=== PATIENT | male | born 1960 | race Two or more races ===

== ENCOUNTER 2016-07-11 12:34 | Emergency (ER) | payer OTHER ==
--- NOTE | 2016-07-11 13:08 | PDOC ---
History of Present Illness - General Chief Complaint: Pain Stated Complaint: RIGHT FOOT PAIN, LEFT FOOT BLACK VEINS Time Seen by Provider: 07/11/16 12:35 History Source: Patient Exam Limitations: No Limitations - History of Present Illness Initial Comments: 07/11/16 13:04 This is an otherwise healthy 56-year-old male who presents emergency department with a complaint of foot pain and being swelling. [place] Over the past 15 days he is noted right foot pain which has gradually worsened. His pain is most prominent in his right heel, worse with standing or putting pressure on the back of the heel. No swelling. He describes pain as a 9-10 over 10, no radiation of his pain. Patient has not taken any medications to alleviate his symptoms. He denies any known direct trauma, inversion injury, or falls. Patient also presents the ER with a complaint of "black and veins" of the left leg. He has noticed this over the past 3 weeks. He has also noted mild foot/leg swelling. No calf pain or swelling. PMH: Hypertension PSH: Denies Medications: Amlodipine, atenolol A LL: NKDA social: denies drugs or cigarettes GENERAL/CONSTITUTIONAL: No: fever, chills, weakness, loss of appetite. MUSCULOSKELETAL: Yes: right heel pain No: back pain, neck pain, joint pain SKIN: Yes: left leg venous discoloration, mild swelling No: lesions, pallor, rash or easy bruising. NEUROLOGIC: No: headache, vertigo, paresthesias, weakness ENDOCRINE: No: unexplained weight gain or loss HEMATOLOGIC/LYMPHATIC: No: anemia, easy bleeding, swelling nodes. GENERAL: The patient is in no acute distress. EXTREMITIES: Right heel is tendern to palpation. Left leg prominent veins 2+ DP and PT bilaterally NEUROLOGICAL: Cranial nerves II through XII grossly intact. Normal speech. No focal neurological deficits. MUSCULOSKELETAL: Back non-tender to palpation, no CVA tenderness SKIN: Warm, Dry, normal turgor, no rashes or lesions noted. Past History - Past Medical History Allergies/Adverse Reactions: Allergies Allergy/AdvReac Type Severity Reaction Status Date / Time No Known Allergies Allergy Verified 07/11/16 12:36 Home Medications: Ambulatory Orders Amlodipine Besylate 5 mg PO DAILY 07/11/16 Atenolol [Tenormin] 50 mg PO DAILY 07/11/16 Diphenhydramine HCl [Benadryl -] 25 mg PO Q8H PRN #21 capsule 07/11/16 Hydrocortisone 1% Cream [Hytone 1% Cream -] 1 applic TP BID PRN #1 tube Medical Decision Making - Medical Decision Making 07/11/16 13:08 Will give motrin for pain Will do xray heel Will do duplex left leg (given flight 1 month ago) 07/11/16 14:03 xray negative Duplex negative Will discharge to home 07/11/16 14:29 Pt has a pruritic area of the left deltoid Upon examination it is a 1cm urticarial lesion Pt friend is concerned about bed bugs related to the gown used in Ultrasound? Will give benadryl I do not believe this is due to a bed bug bite Local irritation *DC/Admit/Observation/Transfer Diagnosis at time of Disposition: Heel spur Qualifiers: Laterality: right Qualified Code(s): M77.31 - Calcaneal spur, right foot - Discharge Dispostion Disposition: HOME Condition at time of disposition: Stable Admit: No - Prescriptions Prescriptions: Diphenhydramine HCl [Benadryl -] 25 mg PO Q8H PRN #21 capsule PRN Reason: itching Hydrocortisone 1% Cream [Hytone 1% Cream -] 1 applic TP BID PRN #1 tube PRN Reason: itching - Patient Instructions Printed Discharge Instructions: Heels That Hurt Additional Instructions: Return to the emergency department immediately with ANY new, persistent or worsening symptoms. Continue any medications as previously prescribed by your physician. You should follow up with your primary doctor as soon as possible regarding today's emergency department visit. . Please make sure your doctor reviews the results of your emergency evaluation. Thank you for coming to the [facility] today for your care. It was a pleasure to see you today. Please note that your evaluation is INCOMPLETE until you follow-up with your doctor.
[2016-07-11 13:14] VITALS: TEMP 98.1; BMI 28.0
[2016-07-11 14:01] VITALS: BP 163/95; PULSE 78
[2016-07-11] MEDS ORDERED: diphenhydrAMINE HCL 25 MG CAPSULE (FP) PO ONE ×2 (14:26→14:29)
== END 2016-07-11 14:34 | disposition home or self-care (01) ==
LOC: FER 12:34
DX: M77.31 Calcaneal spur, right foot (principal); I10 Essential (primary) hypertension
CPT/HCPCS: 73630-TC-RT; 93971-TC; 99282-25

== ENCOUNTER 2019-08-22 04:52 | Day surgery (SDC) | payer BC, OTHER ==
[2019-08-21 13:21] VITALS: BMI 27.8
--- NOTE | 2019-08-21 16:05 | HP ---
Satellite [facility] - Chief Complaint Chief Complaint: left shoulder pain - Past Medical History Allergies/Adverse Reactions: Allergies Allergy/AdvReac Type Severity Reaction Status Date / Time No Known Allergies Allergy Verified 07/11/16 12:36 - Current Medications Current Medications: Home Medications Medication Instructions Recorded Amlopres 08/21/19 Meloxicam [Mobic (Nf) -] 15 mg PO PRN 08/21/19 Metformin HCl [Glucophage] 500 mg PO DAILY 08/21/19 Satellite Physical Exam - Physical Examination General Appearance: Well Nourished, Well Developed, Alert & Oriented x3 ENT: Clear Lung: Normal air movement Extremities: Other (left shoulder- + ttp, decr rom, + neer, +donald, nvi) Neurological: Intact, Alert, Oriented Satellite Impression/Plan - Impression/Plan Impression: left shoulder impingement, partial rct, OA Operative Procedure: left shoulder arthroscopy with ARTHUR VILLALPANDO Date to be Performed: 08/21/19
[2019-08-22] MEDS ORDERED: PROPOFOL 20 ML ONE ×2 (08:04)
[2019-08-22] MEDS ORDERED: LIDOCAINE HCL/PF 2% SDV 5ML VIAL ONE (08:04)
[2019-08-22] MEDS ORDERED: MIDAZOLAM HCL 2 MG/2 ML SINGLE DOSE VIAL ONE ×3 (08:04→08:12)
[2019-08-22] MEDS ORDERED: ceFAZolin SODIUM 1 GM VIAL ONE ×2 (08:04→08:38)
[2019-08-22] MEDS ORDERED: DEXAMETHASONE SOD PHOSPHATE 4 MG/1 ML VIAL ONE ×2 (08:04→08:51)
[2019-08-22] MEDS ORDERED: ROPIVACAINE HCL 0.5% 30ML VIAL ONE (08:11)
[2019-08-22] MEDS ORDERED: ceFAZolin SODIUM 1 GM VIAL IVPB ONE (08:38)
[2019-08-22] MEDS ORDERED: KETOROLAC TROMETHAMINE 30 MG/1 ML VIAL ONE (08:51)
[2019-08-22] MEDS ORDERED: LABETALOL HCL 5 MG/1 ML (100MG/20 ML VIAL) ONE (08:52)
--- NOTE | 2019-08-22 09:48 | OP ---
Operative Note - Note: Operative Date: 08/22/19 Pre-Operative Diagnosis: left shoulder impingement syndrome, AC joint OA, adhesive capsulitis Operation: left shoulder arthroscopy, subacromial decompression, manipulation under anesthesia Post-Operative Diagnosis: Same as Pre-op Surgeon: Magdiel Pradhan Supervisor Of Officials: Werner Baker Anesthesiologist/SENIOR PHYSICIAN: Yosvany Zafar Anesthesia: General, Local Specimens Removed: shavings Estimated Blood Loss (mls): 75 Drains, Volume Out (mls): 0 Blood Volume Replaced (mls): 0 Fluid Volume Replaced (mls): 1,000 Operative Report Dictated: Yes
[2019-08-22] MEDS ORDERED: ONDANSETRON 4 MG/2 ML VIAL IVPUSH PRN (10:20)
[2019-08-22] MEDS ORDERED: oxyCODONE HCL 5 MG TABLET PO PRN ×2 (10:20)
[2019-08-22] MEDS ORDERED: ACETAMINOPHEN 1000 MG/100 ML VIAL (NON FORMULARY) IVPB ONE (10:21)
[2019-08-22] MEDS ORDERED: LACTATED RINGERS SOLUTION 1,000 ML IV SCH (10:30)
--- NOTE | 2019-08-22 13:11 | OP ---
DATE OF OPERATION: 08/22/2019 PREOPERATIVE DIAGNOSES: Left shoulder impingement syndrome and adhesive capsulitis. POSTOPERATIVE DIAGNOSES: Left shoulder impingement syndrome and adhesive capsulitis. PROCEDURE: Left shoulder arthroscopy, subacromial decompression, and manipulation under anesthesia. DRAINS: None. COMPLICATIONS: None. SPECIMENS: Arthroscopic shavings. BLOOD LOSS: 75 mL. BLOOD GIVEN: None. FLUID REPLACEMENT: Plasma-Lyte 1000 mL. SURGEON: Colby Pradhan MD BUYER PLANNER: Werner Baker MD ANESTHESIOLOGIST: Yosvany Zafar MD ANESTHESIA: Left interscalene block with LMA anesthesia. This patient is a 59-year-old male with the preoperative diagnosis of severe left shoulder adhesive capsulitis and impingement syndrome. After understanding the potential risks, complications, alternatives, and benefits of surgery versus nonsurgical treatment, the patient elected to undergo this procedure. The patient was brought to the operating room. Peripheral IV placed. IV sedation given. Two grams of IV Ancef were given, and a left interscalene block was performed. LMA anesthesia was induced. He was placed into the beach chair position with ample padding throughout. First, we did a manipulation under anesthesia. The patient had severe adhesive capsulitis. I was only able to externally rotate him 5 degrees, forward flexion to 50 degrees, abduction to 50 degrees, and internal rotation to the belly. Crossing reduction was extremely tight. I could not get his arm across his body. I did a manipulation under anesthesia very carefully in all planes. When I was done, he essentially had full range of motion in forward flexion, crossing abduction, abduction, extension, internal and external rotation. Next, the left upper extremity was prepped and draped in sterile fashion. The bony landmarks were marked out with a marking pen. A posterior portal was established with a number-15 scalpel blade, and a diagnostic glenohumeral arthroscopy was performed. I evacuated some hematoma from the manipulation under anesthesia. The joint looked good. The undersurface of the rotator cuff looked good. There was no tear. The biceps tendon, glenoid, and humerus looked good. The glenoid labrum was frayed, but not torn. The area was copiously irrigated and washed out. All excess saline and hematoma were removed. Next, our attention turned to the subacromial space. Patient had a tremendous amount of inflammatory bursitis. A lateral portal was established, first with a spinal needle, then a number-15 scalpel blade, and then, a green cannula was then introduced into the subacromial space. An ArthroCare wand was used to do a soft tissue bursectomy/extensive debridement/soft tissue subacromial decompression. This revealed an extremely large subacromial bony spur. The distal clavicle looked good. The top surface of the rotator cuff looked good. I put the arm through a full range of motion. There was no top-surface rotator cuff tear. The subacromial space was extremely tight from the subacromial spur. The bony spur was taken down with a 5.5-mm oval beti, first in forward, then fine-tuned in reverse, and then with a straight shaver. All bony debris was removed, and additional bursectomy was performed. Photographs were taken before and after. The arm was put through a range of motion. There were no points of impingement. At this point, the top surface of the rotator cuff was again directly visualized, and again, there was no tear. The area was copiously irrigated and washed out. All excess saline removed. The arthroscopy portals were closed with 3-0 nylon sutures. The area was then washed and dried, covered with Aquacel dressing, sling. Total surgical time was about 40 minutes. There were no complications during the case. The patient was brought to the recovery room in stable condition. Werner Baker MD dictating for MD COLBY Carrillo M.D. [id number]
[2019-08-22 13:49] VITALS: BP 138/74; PULSE 83; TEMP 97.1
--- NOTE | 2019-08-26 17:56 | PATH ---
Surgical Pathology Report Patient Name: DERIC GIBBS Med. Rec. #: [id number] /Age/Gender: 1960 (Age: 59) / M Account: [id number] Location: [facility] SURGICAL Taken: 08/22/2019 Received: 08/22/2019 Reported: 08/26/2019 Physicians: Cheryl Cherry M.D. Specimen(s) Received LEFT SHOULDER SHAVINGS Clinical History Tear left shoulder Final Diagnosis LEFT SHOULDER SHAVINGS: BENIGN PORTIONS OF SKELETAL MUSCLE, CARTILAGE, AND SYNOVIAL TISSUE. Electronically Signed Karen Arellano M.D. Gross Description Received in formalin, labeled "left shoulder shavings," is a 6.0 x 4.8 x 0.4 cm. aggregate of silva-yellow soft tissue fragments. A administrative representative portion is submitted in one cassette. /08/22/2019 saudi/08/22/2019
== END 2019-08-22 13:49 | disposition home or self-care (01) ==
LOC: JASU-SURG 04:52
PROVIDERS: ATTEND Orthopaedic Surgery
PROC: 0RNK4ZZ Release Left Shoulder Joint, Percutaneous Endoscopic Approach (ICD-10-PCS; principal; 2019-08-22 08:30)
DX: M75.42 Impingement syndrome of left shoulder (principal); M75.02 Adhesive capsulitis of left shoulder
CPT/HCPCS: 88304-TC; 94760; J0131